=== PATIENT | male | born 1980 | race Caucasian/White ===

== ENCOUNTER 2020-04-27 16:02 | Outpatient (CLI) | payer OTHER, SELFPAY ==
--- NOTE | 2020-04-27 | XR_ITS ---
WS: [id number] Right elbow, 3 views, 04/27/2020 Clinical Data: RT ELBOW PAIN Comparison: None. Findings: No fractures or dislocations are seen. The radial head is normal. The soft tissues are unremarkable. XR/XR elbow RT min 3V* [id number] Impression: Negative right elbow.
== END 2020-04-27 16:03 | disposition home or self-care (01) ==
PROVIDERS: PCP Registered Nurse; Visit Provider Registered Nurse
DX: M25.521 Pain in right elbow (principal)
CPT/HCPCS: 73080

== ENCOUNTER → 2020-06-06 14:10 | Outpatient (BNVA) | payer OTHER, SELFPAY | PROVIDERS: PCP Registered Nurse; Visit Provider Specialist | DX: M25.521 Pain in right elbow (principal); G56.21 Lesion of ulnar nerve, right upper limb; R20.0 Anesthesia of skin; R20.2 Paresthesia of skin | CPT/HCPCS: 95886; 95908 ==

== ENCOUNTER 2020-06-09 16:47 | Outpatient (CLI) | payer OTHER, SELFPAY ==
--- NOTE | 2020-06-09 17:14 | MR_ITS ---
WS: [id number] MRI RIGHT ELBOW without CONTRAST. COMPARISON: 04/27/2020 Multiplanar, multisequence imaging is performed without contrast. No fracture or marrow edema. Small joint effusion at the elbow. No osteochondral lesions or loose bod ies. There is increased signal in the common extensor tendon at its attachment site to the lateral epicond yle. The radial collateral ligament is intact. Common flexor tendon is intact. There is no muscle roddy ma or atrophy. There is also increased T2 signal in the anconeus muscle as it inserts into the posterior condyle. MR/MR elbow RT wo con* [id number] IMPRESSION: 1. Insertion site tears involving the common extensor tendon and the anconeus muscle involving the lateral humeral condyle/epicondyle. 2. Small joint effusion. 3. No fracture.
== END 2020-06-09 16:48 | disposition home or self-care (01) ==
LOC: RADSHAW 16:48
PROVIDERS: PCP Registered Nurse; Visit Provider Registered Nurse
DX: M25.421 Effusion, right elbow (principal); S46.811A Strain of other muscles, fascia and tendons at shoulder and upper arm level, right arm, initial encounter; X58.XXXA Exposure to other specified factors, initial encounter
CPT/HCPCS: 73221

== ENCOUNTER → 2020-06-24 10:57 | Outpatient (BNVA) | payer OTHER, SELFPAY | PROVIDERS: PCP Registered Nurse; Visit Provider Orthopaedic Surgery | DX: Z01.818 Encounter for other preprocedural examination (principal); Z20.822 Contact with and (suspected) exposure to COVID-19 | CPT/HCPCS: 87635 ==

== ENCOUNTER 2020-06-30 07:57 | Day surgery (SDC) | payer OTHER, SELFPAY ==
[2020-06-29 14:19] VITALS: BMI 29.8
[2020-06-30] VITALS (10 sets, daily range): BP systolic 122–160; BP diastolic 81–107; PULSE 67–86; RESP 12–18; TEMP 36.5–36.7; O2SAT 91–99
[2020-06-30] MEDS: sodium chloride 0.9% 1,000 ML 30 ML IV (08:18)
--- NOTE | 2020-06-30 08:34 | ANES.PREANE2 ---
Pre-Anesthetic Assessment Pre-Anesthetic Assessment: Height/Weight: Height 1.68 m Weight 83.915 kg Temp Pulse Resp BP Pulse Ox 97.7 F 67 18 128/81 98 06/30/20 08:08 06/30/20 08:08 06/30/20 08:08 06/30/20 08:08 06/30/20 08:08 Preop Diagnosis: Right lateral epicondylitis Proposed Procedure: Operation Date: 06/30/20 09:20 Proposed Procedures p Right elbow lateral epicondyle debridement 46875 M77.11(Right) - Isaias Burger MD Familial anesthetic complications: None Was Beta Jacquelin taken within 24 hours: N/A Was Clonidine taken within 24 hours: N/A Last intake: Intake Last Liquid Date 06/29/20 Last Solid Date 06/29/20 Social: Social History: Tobacco Exam: Pre-Anes Outpt Exam: alert, oriented x 3, clear to auscultation bilaterally and regular rate & rhythm Airway: Cervical ROM: WNL MP: 3 Dentition: Other (only 8 teeth) Anesthetic Plan: ASA status: 1 Anesthesia: General Risk of > 500 ml blood loss (7ml/kg in children): No Meds/Allergies Current Medications: Current Medications Generic Name Dose Route Start Last Admin Trade Name Freq PRN Reason Stop Dose Admin Sodium Chloride 1,000 mls @ 30 ml s/hr 06/30/20 08:15 06/30/20 08:18 Sodium Chloride 0.9% IV 07/01/20 08:14 30 mls/hr .Q24H PATRICK Administration PFSH Anesthesia PFSH: Social History (Updated 06/29/20 @ 14:18 by Luz Elena Hammer) Smoking and tobacco status: current every day smoker cigarettes Data Anesthesia Cardiac Studies: No Data to Display
--- NOTE | 2020-06-30 09:22 | W.PM.OPSUD ---
Surgery/Procedure H&P Update DATE OF PROCEDURE: June 30, 2020 DATE H&P PERFORMED: 06/20/20 H&P UPDATE INFORMATION: I have reviewed H&P completed within last 30 days PREOP DIAGNOSIS: Right lateral epicondylitis PRIMARY INDICATION FOR PROCEDURE: Persistent right lateral elbow pain unresponsive to conservative measures PLANNED PROCEDURE: Operation Date: 06/30/20 09:20 Proposed Procedures p Right elbow lateral epicondyle debridement [id number] M77.11(Right) - Isaias Burger MD
[2020-06-30] MEDS: fentaNYL 50 mcg/mL INJ 2mL IVP ×2 (10:39→10:44)
--- NOTE | 2020-06-30 10:47 | PM.OP ---
Operative Report Date of procedure: June 30, 2020 Pre-op Diagnosis: Right lateral epicondylitis Post-op diagnosis: same Post-op Findings: Same Procedure Done: Debridement right lateral epicondyle Pathology: none sent Surgeon: sIaias Burger Anesthesia: General Estimated blood loss (mL): 5 Tourniquet time (min): 24 Findings: The patient had a moderate amount of angiofibrous tissue just distal to the insertion of his extensor musculature on the lateral epicondyle. No obvious extensor musculature tears were identified Disposition: PACU Procedure: Was taken to the operating room and given 2 g of Ancef. His right upper extremity was prepped and draped in the usual fashion. A timeout was performed. A 3 cm curved incision was made over the lateral epicondyle with scalpel blade. Dissection was carried down with electrocautery to the lateral epicondyle. A sharp scalpel blade was used to divide the periosteum and extensor insertion off the lateral epicondyle anteriorly and posteriorly and dissection was carried just distal to the level of the musculotendinous junction. Poor quality angio fibrous tissue was identified deep to the insertion and this was removed with a sharp scalpel blade leaving healthy appearing tendon. A rongeur was then used to debride the lateral epicondyle down to vascular bone. The periosteum and tendon was reapproximated with 3-0 Vicryl with buried knots. The subcutaneous tissue was closed with 3-0 Vicryl. The skin was closed with a running 3-0 Prolene and closed with Steri-Strips. Xeroflo gauze 4 x 4's web roll and a posterior splint were applied. Patient was placed in a sling, extubated, and taken to recovery room in stable condition.
[2020-06-30] MEDS: HYDROcodone-acetaminophen 5-325 mg Tablet 1 TAB PO (11:41)
--- NOTE | 2020-06-30 20:50 | ANE.PACU2 ---
Inpatient post-anesthesia follow up: Airway intact: Yes Vital signs: Temperature 98.1 F Pulse Rate 68 Respiratory Rate 18 Blood Pressure 139/98 Pulse Oximetry 99 Oxygen Delivery Me thod Room Air Oxygen Flow Rate 8 Fraction of Inspir ed Oxygen Hydration adequate: Yes Nausea and vomiting: No Pain level: 2 Mental status: Baseline
== END 2020-06-30 11:40 | disposition home or self-care (01) ==
PROVIDERS: PCP Registered Nurse; Visit Provider Orthopaedic Surgery
PROC: (CPT 24359; principal; 2020-06-30 09:10)
DX: M77.11 Lateral epicondylitis, right elbow (principal); F17.210 Nicotine dependence, cigarettes, uncomplicated
CPT/HCPCS: 24359; J0690; J1580; J2250; J2405; J2704; J3010; J7030

== ENCOUNTER → 2021-01-17 15:03 | Outpatient (BNVA) | payer OTHER, SELFPAY | PROVIDERS: PCP Registered Nurse; Visit Provider Nurse Practitioner Family | DX: Z20.822 Contact with and (suspected) exposure to COVID-19 (principal) | CPT/HCPCS: 87635 ==

== ENCOUNTER 2024-05-11 19:16 | Emergency (ER) | payer OTHER, SELFPAY ==
[2024-05-11 19:29] VITALS: BP 134/75; PULSE 71; RESP 14; TEMP 36.7; O2SAT 98; BMI 27.0
--- NOTE | 2024-05-11 19:40 | XRR_ITS ---
PROCEDURE INFORMATION: Exam: XR Right Hand Exam date and time: 05/11/2024 7:59 PM Age: 43 years old Clinical indication: Injury or trauma; Other: Puncture wound; Work related; Hand; Right; Injury date: 05/11/2024; Additional info: Lac to palm TECHNIQUE: Imaging protocol: Radiologic exam of the right hand. Views: 3 or more views. COMPARISON: No relevant prior studies available. FINDINGS: Bones/joints: Normal. Soft tissues: Normal. XR/XR hand RT min 3V* [id number] IMPRESSION: No acute findings.
--- NOTE | 2024-05-11 19:40 | PC.NURSE ---
Lac irrigated with normal saline. Tolerated well by patient.
--- NOTE | 2024-05-11 20:09 | ED_ITS ---
HPI - Wound/Laceration General: Chief Complaint: Wound/Laceration Stated Complaint: R hand injury, cut Time Seen by Provider: 05/11/24 19:37 Source: patient Mode of arrival: ambulatory Limitations: no limitations History of Present Illness: Patient is a 43-year-old male presents the emergency department with laceration to right hand. States that he cut it at work when he dropped a tire cover on it, where initially went to urgent care however they sent him here for an x-ray. Laceration appearing superficial, he was stating that it was bleeding though there is no obvious bleeding at time of examination or in triage. States that his tetanus is up-to-date. No distal neurovascular symptoms reported, no other symptoms at this time. No contamination or foreign body. Onset (ago): hour(s) Extremity Location: Right: hand Place: home Patient tetanus UTD: Yes Context: accidental Associated symptoms: Denies chills, fever(s), nausea or vomiting Treatments prior to arrival: bandage Related Data Previous Rx's Medication Instructions Recorded ibuprofen 800 mg tablet 800 mg PO Q8H PRN pain #30 tabs 11/07/20 Allergies Allergy/AdvReac Type Severity Reaction Status Date / Time No Known Allergies Allergy Verified 05/11/24 19:36 Review of Systems General: Reports: 10 or more systems reviewed and unremarkable except in HPI and below Const: Denies: fever(s) or chills Card: Denies: chest pain Resp: Denies: dyspnea GI: Denies: abdominal pain, nausea, vomiting or diarrhea Musc: Denies: extremity pain or joint pain Skin/Breast: Reports: new lesions (Lac to right hand); Denies: rash, skin pain or skin tenderness Neuro: Denies: headache(s) PFS ED PFSH: Social History Smoking and tobacco/nicotine status: current every day tobacco/nicotine user cigarettes Physical Exam Const: COMMON NORMALS: no acute distress, average body habitus, patient oriented x3, no limitations, healthy appearing, alert and well nourished HENMT: COMMON NORMALS: normocephalic and atraumatic HEAD & SCALP: normocephalic and atraumatic Neck/C-Spine: COMMON NORMALS: full ROM, no lymphadenopathy, supple and no meningeal signs Resp: COMMON NORMALS: normal respiratory effort, No use of accessory muscles and clear to auscultation bilaterally AUSCULTATION: clear to auscultation bilaterally Cardio: COMMON NORMALS: regular rate and regular rhythm RATE: regular rate RHYTHM: regular rhythm Extremity: COMMON NORMALS: full ROM and capillary refill normal NARRATIVE EXTREMITY EXAM: Good strength of the right hand, no distal neurovascular deficits Neuro: COMMON NORMALS: patient oriented x3, moves all extremities, no focal motor deficits and no sensory deficits noted SENSORIUM/ORIENTATION: Yes alert MENINGEAL SIGNS: Yes no meningeal signs Skin: COMMON NORMALS: turgor normal NARRATIVE SKIN EXAM: Very small, superficial 1 cm laceration over the right thenar eminence, at the base of the thumb to the palmar side. No active bleeding. No foreign body or contamination. GENERAL SKIN EXAM: turgor normal Procedures Laceration Laceration 1: Site: hand Side (If applicable): right Size (cm): 1 Description: linear and clean Depth: simple, single layer Local Anesthetic: lidocaine 2% and with epi Amount of anesthesia used (mL): 2 Pre-repair: wound explored Size (cm): 5-0 Number of sutures: 2 Technique: simple, interrupted Course Vital Signs: Vital signs: Vital Signs Temperature 98.0 F 05/11/24 19:29 Pulse Rate 71 05/11/24 19:29 Respiratory Rate 14 05/11/24 19:29 Blood Pressure 134/75 05/11/24 19:29 Pulse Oximetry 98 05/11/24 19:29 MDM - Wound/Laceration Medical Decision Making Patient presented with lack to right hand. This was very small and superficial, no x-ray abnormalities. 2 sutures were placed, proper wound care discussed and return precautions given. Tetanus was up-to-date, no need for antibiotics at this time. XR interpretation done by ED provider, pending radiology final review ED provider radiology interpretation(s): No bony abnormality on x-ray of right hand. Discharge Plan Discharge Patient Disposition: Home Clinical Impression: Laceration of hand, right Qualifiers: Encounter type: initial encounter Foreign body presence: without foreign body Qualified Code(s): S61.411A - Laceration without foreign body of right hand, initial encounter Condition: Stable Prescriptions: No Action ibuprofen 800 mg tablet 800 mg PO Q8H PRN (Reason: pain) Qty: 30 0RF Discharge Orders: Discharge ED (Routine); Ordered 05/11/24 Ordered By: Gerard Muñoz Referrals: Dana Zendejas [Primary Care Provider] - Patient Instructions: Laceration (ED) Activity Restrictions/Additional Instructions: Monitor for any signs of infection and return to the ED. Please follow-up with primary care. Sutures out in 5 days. Keep wound clean and dry as discussed. Ibuprofen for pain. Coding Level of Care Code ED Document Design Specialist for Mari Aparicio
[2024-05-11 20:52] VITALS: BP 115/67; PULSE 60; O2SAT 96
== END 2024-05-11 20:55 | disposition home or self-care (01) ==
PROVIDERS: Emergency Provider Physician Assistant; PCP Registered Nurse
DX: S61.411A Laceration without foreign body of right hand, initial encounter (principal); F17.210 Nicotine dependence, cigarettes, uncomplicated; X58.XXXA Exposure to other specified factors, initial encounter
CPT/HCPCS: 12001; 73130; 99283